=== PATIENT | male | born 2000 | race African-American/Black ===

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

== ENCOUNTER 2021-06-10 22:13 | Emergency (ER) | payer OTHER ==
[~2021-06-10] VITALS: Ht 175.3 cm; Wt 59.0 kg
[2021-06-10 22:23] VITALS: BP 119/67
--- NOTE | 2021-06-10 22:33 | NUR ---
PT TAKEN TO BED 6
[2021-06-10] MEDS ORDERED: PENICILLIN G BENZATHINE L-A 1.2 MU/2 ML SYR IM ONE (22:35)
--- NOTE | 2021-06-10 23:14 | NUR ---
Dr. Chatman examining patient.
--- NOTE | 2021-06-10 23:18 | NUR ---
ASSESSED, D/C BY ERMD.
== END 2021-06-10 23:18 | disposition home or self-care (01) ==
LOC: MED 22:13
DX: A53.9 Syphilis, unspecified (principal); Z20.2 Contact with and (suspected) exposure to infections with a predominantly sexual mode of transmission
CPT/HCPCS: 96372; 99283; J0561

== ENCOUNTER 2021-08-31 22:50 | Emergency (ER) | payer OTHER ==
[~2021-08-31] VITALS: Ht 175.3 cm; Wt 59.9 kg
[2021-08-31 22:58] VITALS: BP 117/66
--- NOTE | 2021-08-31 23:01 | NUR ---
PT TAKEN TO BED 7.
--- NOTE | 2021-08-31 23:05 | NUR ---
RECEIVED PT IN BED 7 WITH C/O OF FEELING SOMETHING MOVES IN LUQ X2DAYS. STATES WHEN HE LAYS DOWN HE FEELS MOVEMENT AND IT POPS WITH TOUCH. DENIES HX, RX AND ALLERGIES
[2021-08-31] MEDS ORDERED: ONDA-188 PO (23:08)
[2021-08-31] MEDS ORDERED: ONDANSETRON 4 MG ODT PO ONE (23:10)
[2021-08-31 23:15] VITALS: BP 117/66
--- NOTE | 2021-08-31 23:15 | NUR ---
Patient discharged with v/s stable. Written and verbal after care instructions given and explained. Patient alert, oriented and verbalized understanding of instructions. [g ED.DCMODE] with [g ED.D/CMODE]. All questions addressed prior to discharge. ID band removed. Patient advised to follow up with PMD. Rx of [] given. Patient educated on indication of medication including possible reaction and side effects. Opportunity to ask questions provided and answered.
== END 2021-08-31 23:15 | disposition home or self-care (01) ==
LOC: MED 22:50
DX: R11.2 Nausea with vomiting, unspecified (principal); R10.84 Generalized abdominal pain; F12.90 Cannabis use, unspecified, uncomplicated; Z79.899 Other long term (current) drug therapy
CPT/HCPCS: 99283; Q0162

== ENCOUNTER 2022-03-13 16:25 | Emergency (ER) | payer OTHER ==
[~2022-03-13] VITALS: Ht 175.3 cm; Wt 65.8 kg
[~2022-03-13 16:25] MED LIST: ONDA-188 PO
[2022-03-13 17:07] VITALS: BP 128/76
--- NOTE | 2022-03-13 17:29 | NUR ---
RUY RONDON AT PT SIDE FOR EVAL
--- NOTE | 2022-03-13 17:30 | NUR ---
21 Y/O MALE BIB SELF C/O SORE THROAT X3 DAYS NKA PMH: DENIES
[2022-03-13] MEDS ORDERED: IBUP-2213 PO (17:44)
[2022-03-13] MEDS ORDERED: KETOROLAC 30 MG/ML VIAL IM ONE (17:45)
[2022-03-13] MEDS ORDERED: PENICILLIN G BENZATHINE L-A 1.2 MU/2 ML SYR IM ONE (17:45)
== END 2022-03-13 20:15 | disposition home or self-care (01) ==
LOC: MED 16:25
DX: J02.0 Streptococcal pharyngitis (principal); Z20.822 Contact with and (suspected) exposure to COVID-19
CPT/HCPCS: 87081; 87426; 96372; 99284; J0561; J1885

== ENCOUNTER 2022-05-23 08:48 | Emergency (ER) | payer OTHER ==
[~2022-05-23] VITALS: Ht 175.3 cm; Wt 56.7 kg
[~2022-05-23 08:48] MED LIST changes: +IBUP-2213 PO
[2022-05-23 09:46] VITALS: BP 109/71
--- NOTE | 2022-05-23 09:52 | NUR ---
PT AMB TO BED 3.
--- NOTE | 2022-05-23 10:04 | NUR ---
22/M WALKED IN C/O NIGHT SWEATS AND CHILLS ONSET 4 DAYS. DENIES SOB OR BODY ACHE. DENIES COUGH. AAO4, AMBULATORY, ON ROOM AIR. PMH: DENIES
--- NOTE | 2022-05-23 11:36 | NUR ---
HERRERA TANIKA AND FLU SAMPLES COLLECTED AND WALKED TO LAB
[2022-05-23 11:38] VITALS: BP 118/72
--- NOTE | 2022-05-23 11:38 | NUR ---
Patient discharged with v/s stable. Written and verbal after care instructions ABOUT VIRAL ILLNESS given and explained. Patient verbalized understanding. Ambulatory with steady gait. All questions addressed prior to discharge. Advised to follow up with PMD.
== END 2022-05-23 11:38 | disposition home or self-care (01) ==
LOC: MED 08:48
DX: B34.9 Viral infection, unspecified (principal); Z20.822 Contact with and (suspected) exposure to COVID-19
CPT/HCPCS: 99283

== ENCOUNTER 2022-05-26 23:54 | Emergency (ER) | payer OTHER ==
[~2022-05-26] VITALS: Ht 175.3 cm; Wt 56.7 kg
[2022-05-27 00:03] VITALS: BP 133/72
--- NOTE | 2022-05-27 00:09 | NUR ---
Patient waited inside his car.
--- NOTE | 2022-05-27 01:03 | NUR ---
Patient taken to bed 4.
--- NOTE | 2022-05-27 01:16 | NUR ---
Dr. Espitia examining patient.
[2022-05-27] MEDS ORDERED: HYD1C TP (01:27)
[2022-05-27] MEDS ORDERED: NAPR-54 PO (01:27)
[2022-05-27] MEDS ORDERED: AMOX500C25 PO (01:27)
[2022-05-27 01:40] VITALS: BP 133/72
--- NOTE | 2022-05-27 01:40 | NUR ---
Patient discharged with v/s stable. Written and verbal after care instructions given and explained. Patient alert, oriented and verbalized understanding of instructions. Ambulatory with steady gait. All questions addressed prior to discharge. ID band removed. Patient advised to follow up with PMD. Rx of AMOXICILLIN HYDROCORTISONE NAPROSYN given.
--- NOTE | 2022-05-27 01:41 | NUR ---
Chart checked and completed.
--- NOTE | 2022-05-27 01:41 | NUR ---
STREP THROAT SWABS COLLECTED AND SENT TO LAB
== END 2022-05-27 01:40 | disposition home or self-care (01) ==
LOC: MED 23:54
DX: J02.9 Acute pharyngitis, unspecified (principal)
CPT/HCPCS: 87081; 99283

== ENCOUNTER 2022-06-29 18:54 | Emergency (ER) | payer OTHER ==
[~2022-06-29] VITALS: Ht 175.3 cm; Wt 58.1 kg
[~2022-06-29 18:54] MED LIST changes: +AMOX500C25 PO; +HYD1C TP; +NAPR-54 PO
[2022-06-29 19:02] VITALS: BP 122/76
--- NOTE | 2022-06-29 19:04 | NUR ---
PT AMBULATED TO LOBBY FROM [facility]
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
[2022-06-29] MEDS ORDERED: KETOROLAC 15 MG/ML VIAL IM ONE (20:15)
[2022-06-29] MEDS ORDERED: methocarbamoL 500 MG TAB PO STA (20:15)
[2022-06-29] MEDS ORDERED: LIDOCAINE 5% 1 EA PATCH TP ONE (20:20)
[2022-06-29] MEDS ORDERED: IBUP-2213 PO (20:28)
== END 2022-06-29 20:50 | disposition home or self-care (01) ==
LOC: MED 18:54
DX: M54.50 Low back pain, unspecified (principal); V49.88XA Car occupant (driver) (passenger) injured in other specified transport accidents, initial encounter; Y93.89 Activity, other specified; Y92.89 Other specified places as the place of occurrence of the external cause; Y99.8 Other external cause status
CPT/HCPCS: 96372; 99283; J1885

== ENCOUNTER 2022-10-25 18:36 | Emergency (ER) | payer OTHER ==
[~2022-10-25] VITALS: Ht 175.3 cm; Wt 60.3 kg
[2022-10-25 18:43] VITALS: BP 132/89
--- NOTE | 2022-10-25 18:49 | NUR ---
pt states he is going to leave and come back. informed pt that he may be skipped if pcp calls him with no answer. pt aware.
[2022-10-25 21:39] LABS: BASOPHILS % (AUTO) 0.5 % (0.0-2.0); EOSINOPHILS % (AUTO) 0.9 % (0.0-4.0); HEMATOCRIT 39.3 % (36-52); HEMOGLOBIN 13.5 g/dL (12.0-18.0); LYMPHOCYTES % (AUTO) 52.2 % (20.5-51.1); MEAN CORPUSCULAR HEMOGLOBIN 33 pg (27-31); MEAN CORPUSCULAR HGB CONC 34 g/dL (33-37); MEAN CORPUSCULAR VOLUME 96.2 fL (80-94); MONOCYTES # (AUTO) 0.3 K/uL (0.8-1.0); MONOCYTES % (AUTO) 6.9 % (1.7-9.3); NEUTROPHILS # (AUTO) 1.5 K/uL (1.8-7.7); NEUTROPHILS % (AUTO) 39.5 % (42.2-75.2); PLATELET COUNT (AUTO) 236 K/uL (140-450); RED BLOOD CELL COUNT(AUTO) 4.09 MIL/uL (4.20-6.10); RED CELL DISTRIBUTION WIDTH 14.2 % (11.6-13.7); WHITE BLOOD COUNT (AUTO) 3.7 K/uL (4.8-10.8)
[2022-10-25 21:59] LABS: ALBUMIN 4.6 g/dL (3.4-5.0); ANION GAP 11.3 (8-16); CARBON DIOXIDE 30.6 mmol/L (21-32); CREATININE 1.2 mg/dL (0.6-1.3); POTASSIUM 3.9 mmol/L (3.5-5.1); TOTAL BILIRUBIN 0.6 mg/dL (0.0-1.0)
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
== END 2022-10-25 22:21 | disposition left against medical advice (07) ==
LOC: MED 18:36
DX: R10.11 Right upper quadrant pain (principal); R07.81 Pleurodynia; Z79.899 Other long term (current) drug therapy
CPT/HCPCS: 36415; 80053; 83690; 85025; 86360; 99283

== ENCOUNTER 2022-12-27 07:05 | Emergency (ER) | payer OTHER ==
[~2022-12-27] VITALS: Ht 172.7 cm; Wt 56.7 kg
[2022-12-27 07:35] VITALS: BP 130/72
[2022-12-27] MEDS ORDERED: cefTRIAXone 500 MG in LIDOCAINE 1% 1 ML INJ ONE (08:05)
[2022-12-27] MEDS ORDERED: DOXY-690 PO (08:13)
[2022-12-27] MEDS ORDERED: cefTRIAXone 500 MG VIAL ONE (08:16)
[2022-12-27] MEDS ORDERED: LIDOCAINE MPF 1% 5 ML ONE (08:17)
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
--- NOTE | 2022-12-27 08:33 | NUR ---
Patient discharged with v/s stable. Written and verbal after care instructions given and explained. Patient alert, oriented and verbalized understanding of instructions. Ambulatory with steady gait. All questions addressed prior to discharge. ID band removed. Patient advised to follow up with PMD. Rx of VIBRAMYCIN given. Patient educated on indication of medication including possible reaction and side effects. Opportunity to ask questions provided and answered.
[2022-12-27 08:34] VITALS: BP 130/72
[2022-12-28 08:08] LABS: HEPATITIS B SURFACE ANTIBODY Non Reactive (.); HEPATITIS B SURFACE ANTIGEN Negative (Negative)
== END 2022-12-27 08:34 | disposition home or self-care (01) ==
LOC: MED 07:05
DX: A54.9 Gonococcal infection, unspecified (principal); Z79.899 Other long term (current) drug therapy
CPT/HCPCS: 36415; 86592; 86706; 87340; 87491; 96372; 99283; J0696; J2001

== ENCOUNTER 2023-02-02 23:30 | Emergency (ER) | payer OTHER ==
[~2023-02-02] VITALS: Ht 175.3 cm; Wt 57.6 kg
[~2023-02-02 23:30] MED LIST changes: +DOXY-690 PO
[2023-02-02 23:40] VITALS: BP 131/90; PULSE 77; RESP 17; TEMP 98.1
--- NOTE | 2023-02-02 23:43 | NUR ---
TO BED AMBULATORY
--- NOTE | 2023-02-03 00:50 | NUR ---
Dr. Chatman examining patient.
--- NOTE | 2023-02-03 00:51 | NUR ---
PT TAKEN TO BED 7
[2023-02-03 01:00] VITALS: BP 131/90; PULSE 77; RESP 17; TEMP 98.1
--- NOTE | 2023-02-03 01:00 | NUR ---
Patient discharged with v/s stable. Written and verbal after care instructions given and explained. Patient verbalized understanding. Ambulatory with steady gait. All questions addressed prior to discharge. Advised to follow up with PMD.
== END 2023-02-03 00:59 | disposition home or self-care (01) ==
LOC: MED 23:30
DX: K64.4 Residual hemorrhoidal skin tags (principal); Z79.899 Other long term (current) drug therapy
CPT/HCPCS: 99281

== ENCOUNTER 2023-02-21 07:12 | Emergency (ER) | payer OTHER ==
[~2023-02-21] VITALS: Ht 175.3 cm; Wt 59.0 kg
[2023-02-21 07:32] VITALS: BP 150/100; PULSE 66; RESP 20; TEMP 97.8; O2SAT 99
--- NOTE | 2023-02-21 08:33 | NUR ---
PT WALKED OUTSIDE AND DID NOT RETURN BACK TO [facility]
--- NOTE | 2023-02-21 08:53 | NUR ---
PT NOT PRESENT IN LOBBY AT THIS TIME
[2023-02-21] MEDS ORDERED: ONDANSETRON 4 MG/2 ML VIAL IVP ONE (09:30)
[2023-02-21] MEDS ORDERED: NACL 0.9% 1,000 ML IV ONE (09:30)
[2023-02-21] MEDS ORDERED: KETOROLAC 30 MG/ML VIAL IVP ONE (09:30)
[2023-02-21 10:04] LABS: BASOPHILS % (AUTO) 0.5 % (0.0-2.0); EOSINOPHILS % (AUTO) 0.1 % (0.0-4.0); HEMATOCRIT 38.2 % (36-52); LYMPHOCYTES # (AUTO) 1.2 K/uL (2.0-11.5); LYMPHOCYTES % (AUTO) 16.2 % (20.5-51.1); MEAN CORPUSCULAR HEMOGLOBIN 36 pg (27-31); MEAN CORPUSCULAR HGB CONC 34 g/dL (33-37); MEAN CORPUSCULAR VOLUME 104.5 fL (80-94); MONOCYTES # (AUTO) 0.4 K/uL (0.8-1.0); MONOCYTES % (AUTO) 5.5 % (1.7-9.3); NEUTROPHILS # (AUTO) 5.8 K/uL (1.8-7.7); NEUTROPHILS % (AUTO) 77.7 % (42.2-75.2); PLATELET COUNT (AUTO) 231 K/uL (140-450); RED BLOOD CELL COUNT(AUTO) 3.66 MIL/uL (4.20-6.10); RED CELL DISTRIBUTION WIDTH 12.3 % (11.6-13.7); WHITE BLOOD COUNT (AUTO) 7.4 K/uL (4.8-10.8)
[2023-02-21 10:14] VITALS: O2SAT 98
[2023-02-21 10:16] LABS: ALBUMIN 4.3 g/dL (3.4-5.0); CARBON DIOXIDE 30.1 mmol/L (21-32); POTASSIUM 3.1 mmol/L (3.5-5.1); TOTAL BILIRUBIN 0.6 mg/dL (0.0-1.0)
--- NOTE | 2023-02-21 10:17 | NUR ---
PATIENT PRESENTS TO ED WITH ABD PAIN RADIATING OVER ENTIRE ABD.PT STATES HE HAS HAD PAIN SINCE HE WOKE UP THIS MORNING. DENIES N/V PT DENIES DIARREHA; SKIN IS PINK/WARM/DRY; AAOX4 WITH EVEN AND STEADY GAIT; LUNGS CLEAR BL; HR EVEN AND REGULAR; PT DENIES ANY FEVER, CP, SOB, OR COUGH AT THIS TIME; PATIENT STATES PAIN OF 10/10 AT THIS TIME; VSS; PATIENT POSITIONED FOR COMFORT; CALL LIGHT WITHIN REACH; HOB ELEVATED; BEDRAILS UP X2; BED DOWN. ER MD MADE AWARE OF PT STATUS. PMHX HIV + NKA
[2023-02-21 10:20] VITALS: BP 150/100; PULSE 66; RESP 20; TEMP 97.8; O2SAT 98
--- NOTE | 2023-02-21 10:21 | NUR ---
PT HAS BEEN MEDICATED PER PROVIDERS ORDERS.
[2023-02-21] MEDS ORDERED: POTASSIUM CHLORIDE 10 MEQ TABER PO ONE ×3 (11:30→11:55)
[2023-02-21] MEDS ORDERED: KCL 20 MEQ IN 100 mL PREMIX 100 ML IV ONE (11:35)
--- NOTE | 2023-02-21 11:35 | NUR ---
PT STATES HES IN PAIN, PAIN HAS GONE FROM 7 TO 10. PROVIDER MADE AWARE.
[2023-02-21] MEDS ORDERED: HALOPERIDOL IM 5 MG/ML VIAL ONE (11:39)
[2023-02-21] MEDS ORDERED: HALOPERIDOL IM 5 MG/ML VIAL IM ONE (11:45)
[2023-02-21] MEDS ORDERED: MORPHINE SULFATE 4 MG/ML SYR IVP ONE (12:20)
--- NOTE | 2023-02-21 14:05 | NUR ---
PT IS ASLEEP, OFFERED EXTRA BLANKETS FOR PT.
[2023-02-21] MEDS ORDERED: ONDA-188 PO (14:17)
[2023-02-21] MEDS ORDERED: BEN10 PO (14:17)
--- NOTE | 2023-02-21 15:07 | NUR ---
The patient's care was reviewed and supervised by Augustine Nicholas RN.
--- NOTE | 2023-02-21 15:09 | NUR ---
Patient discharged with v/s stable. Written and verbal after care instructions given and explained. Patient alert, oriented and verbalized understanding of instructions. Ambulatory with steady gait. All questions addressed prior to discharge. ID band removed. Patient advised to follow up with PMD. Rx of BENTYL & ZOFRAN given. Patient educated on indication of medication including possible reaction and side effects. Opportunity to ask questions provided and answered.
--- NOTE | 2023-02-21 16:20 | NUR ---
The patient's care was reviewed and supervised by NEGRITO PARRA RN.
== END 2023-02-21 15:07 | disposition home or self-care (01) ==
LOC: MED 07:12
DX: R11.10 Vomiting, unspecified (principal); R19.7 Diarrhea, unspecified; E87.6 Hypokalemia; R10.84 Generalized abdominal pain; Z79.899 Other long term (current) drug therapy; Z79.2 Long term (current) use of antibiotics; Z79.1 Long term (current) use of non-steroidal anti-inflammatories (NSAID)
CPT/HCPCS: 36415; 74176; 80053; 83690; 85025; 96361; 96372; 96374; 96375; 99285; J1630; J1885; J2270; J2405; J3480

== ENCOUNTER 2023-03-22 04:55 | Emergency (ER) | payer OTHER ==
[~2023-03-22] VITALS: Ht 175.3 cm; Wt 54.4 kg
[~2023-03-22 04:55] MED LIST changes: +BEN10 PO
[2023-03-22 05:00] VITALS: BP 130/74; PULSE 90; RESP 17; TEMP 97.9; O2SAT 97
[2023-03-22 05:10] VITALS: BP 130/74; PULSE 90; RESP 17; TEMP 97.9; O2SAT 97
[2023-03-22] MEDS ORDERED: KETOROLAC 30 MG/ML VIAL IM ONE (05:45)
[2023-03-22] MEDS ORDERED: BENZ200C4 PO ×2 (05:47→06:06)
[2023-03-22] MEDS ORDERED: IBUP-1842 PO ×2 (05:47→06:06)
[2023-03-22 06:42] LABS: FLU A ANTIGEN negative (NEGATIVE); FLU B ANTIGEN NEGATIVE (NEGATIVE)
== END 2023-03-22 06:00 | disposition home or self-care (01) ==
LOC: MED 04:55
DX: J02.9 Acute pharyngitis, unspecified (principal); Z20.822 Contact with and (suspected) exposure to COVID-19; Z79.899 Other long term (current) drug therapy
CPT/HCPCS: 87081; 87426; 87804; 96372; 99283; J1885

== ENCOUNTER 2023-06-05 13:55 | Emergency (ER) | payer OTHER ==
[~2023-06-05] VITALS: Ht 167.6 cm; Wt 63.5 kg
[~2023-06-05 13:55] MED LIST changes: +BENZ200C4 PO; +IBUP-1842 PO
[2023-06-05 14:26] VITALS: BP 138/98; PULSE 95; RESP 17; TEMP 97.4; O2SAT 98
[2023-06-05] MEDS ORDERED: KETOROLAC 30 MG/ML VIAL IM ONE (14:40)
[2023-06-05] MEDS ORDERED: NAPR-54 PO (15:15)
== END 2023-06-05 16:03 | disposition home or self-care (01) ==
LOC: MED 13:55
DX: S52.251A Displaced comminuted fracture of shaft of ulna, right arm, initial encounter for closed fracture (principal); S20.211A Contusion of right front wall of thorax, initial encounter; Z79.899 Other long term (current) drug therapy; Z79.1 Long term (current) use of non-steroidal anti-inflammatories (NSAID); Z79.2 Long term (current) use of antibiotics; X58.XXXA Exposure to other specified factors, initial encounter; Y92.89 Other specified places as the place of occurrence of the external cause; Y93.89 Activity, other specified; Y99.8 Other external cause status
CPT/HCPCS: 29125; 71101; 73110; 96372; 99284; J1885

== ENCOUNTER 2023-06-27 20:52 | Emergency (ER) | payer OTHER | END 2023-06-27 21:00 | disposition left against medical advice (07) | LOC: MED 20:52 | DX: Z53.21 Procedure and treatment not carried out due to patient leaving prior to being seen by health care provider (principal) ==

== ENCOUNTER 2023-11-06 12:25 | Emergency (ER) | payer OTHER ==
[~2023-11-06] VITALS: Ht 175.3 cm; Wt 59.0 kg
[2023-11-06 12:37] VITALS: BP 117/78; PULSE 93; RESP 18; TEMP 98.3; O2SAT 99
[2023-11-06] MEDS ORDERED: IBUP-2213 PO (13:09)
[2023-11-06] MEDS ORDERED: AMOX-1230 PO (13:09)
[2023-11-06 13:57] VITALS: BP 117/78; PULSE 93; RESP 18; TEMP 98.3; O2SAT 99
[2023-11-06] MEDS: BACITRACIN OINT 500 UNITS/GM PKT TP ONE (14:00)
== END 2023-11-06 13:56 | disposition home or self-care (01) ==
LOC: MED 12:25
DX: S60.416A Abrasion of right little finger, initial encounter (principal); Z79.899 Other long term (current) drug therapy; W54.0XXA Bitten by dog, initial encounter; Y93.89 Activity, other specified; Y92.89 Other specified places as the place of occurrence of the external cause; Y99.8 Other external cause status
CPT/HCPCS: 90471; 90715; 99283

== ENCOUNTER 2023-11-15 20:27 | Emergency (ER) | payer OTHER ==
[~2023-11-15 20:27] MED LIST changes: +AMOX-1230 PO; +NAPR-337 PO; -NAPR-54 PO
== END 2023-11-15 21:40 | disposition left against medical advice (07) ==
LOC: MED 20:27
DX: Z00.8 Encounter for other general examination (principal); Z53.21 Procedure and treatment not carried out due to patient leaving prior to being seen by health care provider

== ENCOUNTER 2024-01-01 14:53 | Emergency (ER) | payer OTHER ==
[~2024-01-01] VITALS: Ht 175.3 cm; Wt 59.9 kg
[2024-01-01 15:02] VITALS: BP 138/86; PULSE 123; RESP 18; TEMP 97.9; O2SAT 100
[2024-01-01] MEDS ORDERED: HYD1C TP (15:32)
== END 2024-01-01 15:43 | disposition home or self-care (01) ==
LOC: MED 14:53
DX: R21 Rash and other nonspecific skin eruption (principal); F12.90 Cannabis use, unspecified, uncomplicated; Z79.1 Long term (current) use of non-steroidal anti-inflammatories (NSAID); Z79.2 Long term (current) use of antibiotics; Z79.899 Other long term (current) drug therapy
CPT/HCPCS: 99281; 99282

== ENCOUNTER 2024-02-09 17:17 | Emergency (ER) | payer OTHER ==
[~2024-02-09] VITALS: Ht 175.3 cm; Wt 59.6 kg
[2024-02-09 17:22] VITALS: BP 120/83; PULSE 117; RESP 18; TEMP 98.8; O2SAT 99
[2024-02-09] MEDS ORDERED: ACYC400T14 PO (18:26)
[2024-02-09] MEDS: PENICILLIN G BENZATHINE L-A 1.2 MU/2 ML SYR IM ONE (18:28)
[2024-02-09 18:42] VITALS: BP 120/83; PULSE 117; RESP 18; TEMP 98.8; O2SAT 99
== END 2024-02-09 18:42 | disposition home or self-care (01) ==
LOC: MED 17:17
DX: B00.9 Herpesviral infection, unspecified (principal); A53.9 Syphilis, unspecified; Z79.899 Other long term (current) drug therapy
CPT/HCPCS: 96372; 99283; J0561